=== PATIENT | female | born 1975 | race Caucasian/White ===

== ENCOUNTER 2024-03-09 14:17 | Emergency (ER) | payer BC, OTHER ==
[~2024-03-09] VITALS: Ht 154.9 cm; Wt 90.7 kg
[2024-03-09 14:27] VITALS: BP 121/64; PULSE 100; RESP 16; TEMP 98.2; O2SAT 100
[2024-03-09] MEDS ORDERED: HYDROCODONE/ACETAMINOPHEN 5/325MG TABLET PO STA (17:00)
[2024-03-09 18:31] LABS: BASOPHILS % 0.6 % (0.0-2.0); EOSINOPHILS % 1.8 % (0.0-5.0); HEMATOCRIT. 43.1 % (36.0-48.0); LYMPHOCYTES % 26.9 % (20.0-50.0); MEAN CORPUSCULAR HEMOGLOBIN 27.7 pg (28.0-32.0); MEAN CORPUSCULAR HGB CONC 32.5 g/dL (31.0-37.0); MEAN CORPUSCULAR VOLUME 85.2 fL (81.0-99.0); MEAN PLATELET VOLUME 8.2 fl (7.4-10.4); NEUTROPHILS % 64.7 % (40.0-76.0); PLATELET 261 x1000/uL (130-400); RED BLOOD CELL COUNT 5.06 mill/uL (4.2-5.4); RED CELL DISTRIBUTION WIDTH 14.9 % (11.6-14.6)
[2024-03-09 18:33] LABS: POTASSIUM 4.4 mEq/L (3.5-5.1)
[2024-03-09 18:35] LABS: CALCIUM 9.7 mg/dL (8.7-10.4)
[2024-03-09 18:54] LABS: INR 0.9; PROTHROMBIN TIME 10.5 sec (9.6-11.0)
== END 2024-03-09 19:21 | disposition left against medical advice (07) ==
LOC: ER 14:17
DX: M79.605 Pain in left leg (principal); Z86.718 Personal history of other venous thrombosis and embolism; Z90.710 Acquired absence of both cervix and uterus
CPT/HCPCS: 36415; 80048; 85025; 93970; 99284